=== PATIENT | male | born 1975 | race African-American/Black ===

== ENCOUNTER 2017-05-15 17:56 | Emergency (ER) | payer BC ==
[2017-05-15 19:44] VITALS: BP 138/96
--- NOTE | 2017-05-15 20:27 | EDM.PDOC ---
ED HPI GENERAL MEDICAL PROBLEM - General Chief Complaint: Respiratory Problem Stated Complaint: [id number] SEVERE HEADACHE AND COLD Time Seen by Provider: 05/15/17 20:00 Source of Information: Reports: Patient History Limitations: Reports: No Limitations - History of Present Illness INITIAL COMMENTS - FREE TEXT/NARRATIVE: C/O cough, congestion and headache past 3 days, with similar symptoms. No know fever Treatments TOBACCO STEMMER: Reports: Acetaminophen, Other Medication(s) Headache Pain Score (Numeric/FACES): 9 - Related Data Allergies Allergy/AdvReac Type Severity Reaction Status Date / Time No Known Allergies Allergy Verified 05/15/17 19:44 Home Meds: Home Meds . [No Known Home Meds] 04/25/14 [History] Past Medical History - Past Health History Medical/Surgical History: Denies Medical/Surgical History HEENT History: Reports: None Cardiovascular History: Reports: None Respiratory History: Reports: None Gastrointestinal History: Reports: None Genitourinary History: Reports: Renal Calculus Musculoskeletal History: Reports: None Neurological History: Reports: None Psychiatric History: Reports: None Endocrine/Metabolic History: Reports: None Hematologic History: Reports: None Immunologic History: Reports: None Oncologic (Cancer) History: Reports: None Dermatologic History: Reports: None - Infectious Disease History Infectious Disease History: Reports: None - Past Surgical History Male Surgical History: Reports: Lithotripsy (ESWL) Social & Family History - Family History Family Medical History: Noncontributory - Tobacco Use Smoking Status *Q: Never Smoker Second Hand Smoke Exposure: No - Caffeine Use Caffeine Use: Reports: Coffee - Alcohol Use Days Per Week of Alcohol Use: 0 - Recreational Drug Use Recreational Drug Use: No ED ROS GENERAL - Review of Systems Review Of Systems: See Below Constitutional: Reports: Malaise HEENT: Reports: Rhinitis. Denies: Ear Pain, Throat Pain Respiratory: Reports: No Symptoms Cardiovascular: Reports: No Symptoms GI/Abdominal: Reports: No Symptoms Musculoskeletal: Reports: No Symptoms Skin: Reports: No Symptoms Neurological: Reports: Headache ED EXAM, GENERAL - Physical Exam Exam: See Below Exam Limited By: No Limitations General Appearance: Alert, Mild Distress Eye Exam: Bilateral Eye: EOMI Ears: Normal External Exam, Normal TMs Nose: Other Throat/Mouth: Normal Inspection Head: Atraumatic, Normocephalic Neck: Normal Inspection Respiratory/Chest: No Respiratory Distress, Lungs Clear Cardiovascular: Normal Peripheral Pulses GI/Abdominal: Normal Bowel Sounds (Male) Exam: No Hernia Back Exam: Normal Inspection, Full Range of Motion, Paraspinal Tenderness Neurological: Alert, Oriented Skin Exam: Warm, Dry, Intact Course - Vital Signs Last Recorded V/S: Last Vital Signs Temp 97.7 F 05/15/17 19:39 Pulse 102 H 05/15/17 19:39 Resp 16 05/15/17 19:39 BP 138/96 H 05/15/17 19:39 Pulse Ox 99 05/15/17 19:39 Departure - Departure Time of Disposition: 20:25 Disposition: Home, Self-Care 01 Condition: Good Clinical Impression: Upper respiratory infection Qualifiers: URI type: unspecified viral URI Qualified Code(s): J06.9 - Acute upper respiratory infection, unspecified - Discharge Information Instructions: Viral Respiratory Infection, [id number] Referrals: PCP,None [Primary Care Provider] - Forms: ED Department Discharge Additional Instructions: tylenol or ibuprofen for discomfort robitussin per label for cough humidification
== END 2017-05-15 20:30 | disposition home or self-care (01) ==
LOC: DL.ED 17:56
DX: J06.9 Acute upper respiratory infection, unspecified (principal)
CPT/HCPCS: 99283

== ENCOUNTER 2018-05-30 19:08 | Emergency (ER) | payer BC ==
[2018-05-30 19:28] VITALS: BP 145/92
[2018-05-30] MEDS: Famotidine 20 MG Tab PO ONE (19:44)
[2018-05-30] MEDS: diphenhydrAMINE 25 MG Tab PO ONE (19:45)
--- NOTE | 2018-05-30 19:47 | EDM.PDOC ---
ED HPI GENERAL MEDICAL PROBLEM - General Chief Complaint: Skin Complaint Stated Complaint: RASHES ALL OVER Time Seen by Provider: 05/30/18 19:30 Source of Information: Reports: Patient History Limitations: Reports: No Limitations - History of Present Illness INITIAL COMMENTS - FREE TEXT/NARRATIVE: ED with c/o itching rash all over body, started on right upper inner arm Spread to other arm then chest and back. Denies any change in laundry or bath products , No new foods. Noticed this afternoon, has not taken anything for itching. No prior episodes. No difficulty swallowing or breathing. Recent diagnosis of diabetes and HTN has not started newly prescribed medications. - Related Data Allergies Allergy/AdvReac Type Severity Reaction Status Date / Time No Known Allergies Allergy Verified 05/30/18 19:34 Home Meds: Home Meds . [No Known Home Meds] 04/25/14 [History] Past Medical History - Past Health History Medical/Surgical History: Denies Medical/Surgical History HEENT History: Reports: None Cardiovascular History: Reports: None, Hypertension Other Cardiovascular History: Was just diagnosed. Has not taken any of the medication yet. Respiratory History: Reports: None Gastrointestinal History: Reports: None Genitourinary History: Reports: Renal Calculus Musculoskeletal History: Reports: None Neurological History: Reports: None Psychiatric History: Reports: None Endocrine/Metabolic History: Reports: Diabetes, Type II Other Endocrine/Metabolic History: Was just diagnosed. Has not taken any of the medication. Hematologic History: Reports: None Immunologic History: Reports: None Oncologic (Cancer) History: Reports: None Dermatologic History: Reports: None - Infectious Disease History Infectious Disease History: Reports: None - Past Surgical History Male Surgical History: Reports: Lithotripsy (ES[facility]) Social & Family History - Family History Family Medical History: Noncontributory - Tobacco Use Smoking Status *Q: Never Smoker Second Hand Smoke Exposure: No - Caffeine Use Caffeine Use: Reports: Coffee - Recreational Drug Use Recreational Drug Use: No ED ROS GENERAL - Review of Systems Review Of Systems: ROS reveals no pertinent complaints other than HPI. ED EXAM, SKIN/RASH Exam: See Below Exam Limited By: No Limitations General Appearance: Alert, Mild Distress Eye Exam: Bilateral Eye: PERRL Ears: Normal External Exam Nose: Normal Inspection Throat/Mouth: Normal Inspection Head: Atraumatic, Normocephalic Neck: Normal Inspection Respiratory/Chest: No Respiratory Distress, Lungs Clear, Normal Breath Sounds Cardiovascular: Normal Peripheral Pulses, Regular Rate, Rhythm GI/Abdominal: Normal Bowel Sounds Neurological: Alert, Oriented, Normal Cognition Psychiatric: Normal Affect Skin: Warm, Dry, Intact, Rash Location, Skin: Chest, Abdomen, Back, Upper Extremity, Right, Upper Extremity, Left Characteristics: Macular, Urticarial Course - Vital Signs Last Recorded V/S: Last Vital Signs Temp 96.4 F 05/30/18 19:25 Pulse 87 05/30/18 19:25 Resp 14 05/30/18 19:25 BP 145/92 H 05/30/18 19:25 Pulse Ox 100 05/30/18 19:25 - Orders/Labs/Meds Labs: Laboratory Tests 05/30/18 Range/Units 19:20 POC Glucose 102 (70-105) mg/dl Meds: Medications Discontinued Medications Generic Name Dose Route Start Last Admin Trade Name Freq PRN Reason Stop Dose Admin Diphenhydramine HCl 25 mg 05/30/18 19:36 05/30/18 19:45 Benadryl PO 05/30/18 19:37 25 mg ONETIME ONE Administration Famotidine 20 mg 05/30/18 19:37 05/30/18 19:44 Pepcid PO 05/30/18 19:38 20 mg ONETIME ONE Administration Departure - Departure Time of Disposition: 19:38 Disposition: Home, Self-Care 01 Condition: Good Clinical Impression: Pruritic rash - Discharge Information *PRESCRIPTION DRUG MONITORING PROGRAM REVIEWED*: Not Applicable *COPY OF PRESCRIPTION DRUG MONITORING REPORT IN PATIENT [facility]: Not Applicable Instructions: Hives, [id number] Forms: ED Department Discharge Additional Instructions: benadryl 50mg every 4 hours as needed for itching pepcid / famotidine 20mg daily for 5 days follow up urgently if difficulty breathing or swallowing, clinic follow up if continued itching not improved with benadryl
== END 2018-05-30 19:51 | disposition home or self-care (01) ==
LOC: DL.ED 19:08
DX: L29.9 Pruritus, unspecified (principal); I10 Essential (primary) hypertension
CPT/HCPCS: 82962; 99282; A9270